=== PATIENT | female | born 1985 | race American Indian/Alaskan Native ===

== ENCOUNTER 2016-10-16 10:52 | Inpatient (IN) | payer BC ==
[2016-10-16 12:01] LABS: Hematocrit 38.3 % (30.3-42.9); Hemoglobin 12.3 gm/dl (10.1-14.3); Mean Corpuscular HGB Conc 32 % (30-34); Mean Corpuscular Hemoglobin 27 pg (28-32); Mean Corpuscular Volume 85 fl (79-97); Platelet Count 220 K/mm3 (140-440); Red Blood Count 4.52 M/mm3 (3.65-5.03); Red Cell Distribution Width 15.4 % (13.2-15.2); White Blood Count 6.3 K/mm3 (4.5-11.0)
[2016-10-16 12:09] LABS: Bilirubin,Urine NEG (Negative); Blood,Urine NEG (Negative); Ketones,Urine NEG (Negative); Leukocyte Esterase,Urine TR (Negative); Mucus,Urine FEW /HPF; Nitrite,Urine NEG (Negative); Protein,Urine <15 mg/dL mg/dL (Negative); Urobilinogen,Urine < 2.0 mg/dL (<2.0); WBC,Urine < 1.0 /HPF (0.0-6.0)
[2016-10-16 12:24] LABS: Alanine Aminotransferase 29 units/L (7-56); Lactate Dehydrogenase 220 units/L (91-180); Uric Acid 6.2 mg/dL (3.5-7.6)
[2016-10-16] MEDS ORDERED: BRETHINE SUB-Q PRN (13:10)
[2016-10-16] MEDS ORDERED: SUBLIMAZE IV PRN (13:10)
[2016-10-16] MEDS ORDERED: ePHEDrine SULFATE IV PRN (13:10)
[2016-10-16] MEDS ORDERED: XYLOCAINE 2% INFILTRATI ONE ×2 (13:10→19:07)
[2016-10-16] MEDS ORDERED: ZOFRAN IV PRN (13:10)
[2016-10-16] MEDS ORDERED: MINERAL OIL PO PRN (13:10)
--- NOTE | 2016-10-16 13:18 | History and Physical Report ---
History of Present Illness Date of examination: 10/16/16 Chief complaint: pt sent from office for evaluation of elevated b/p reading, while in triage noted to be ctxing frequently as SVE 4cms. Plan to admit for labor. History of present illness: EDC Confirmation: 10/28/2016 Past History : 2 Term Births: 1 Premature Births: 0 Living Children: 1 Para: 1 Mult. Births: 0 Prev : 0 Prev. attempt? 0 Aborta: 0 Elect. Ab: 0 Spont. Ab: 0 Ectopics: 0 # 1 Delivery date: 2006 Weeks Gestation: term labor: no Delivery type: Anesthesia type: none Delivery location: [place] Infant Sex: Female weight: 6#2 Comments: no complications Past Medical History: Negative Past Medical History Past Surgical History: negative Past Medical History Anesthesia Complications: negative Anemia: negative Autoimmune Disorder: negative Bleeding Disorder: negative Blood Transfusions: negative Breast Disease: negative Diabetes: negative Heart Disease: negative Hypertension: negative Hepatitis/Liver Disease: negative Kidney Disease/UTI: negative Neurologic/Epilepsy/Migraines: negative Phlebitis/Varicosities: negative Psychiatric: negative Pulmonary Disease/Asthma: negative Thyroid Disease: negative Hospitalizations: negative Surgery (Non-carrot buncher): negative Abnormal PAP: negative PETERSON Exposure: negative Infertility: negative Uterine Anomaly: negative Uterine Surgery (not C/S): negative Other Gynecologic Problems: negative Social Hx: Patient is single Smoking History: Patient has never smoked. Infection History Hx of STD: none HIV Risk Eval: no Hepatitis B Risk Eval: low risk Personal hx. of genital herpes: no Partner hx. of genital herpes: no Rash, Viral, or Febrile illness since last LMP? no Varicella/Chicken Pox Status: Previous Disease Genetic History Congenital Heart Defect: Mom: no Dad: no Jerrod Disease: Mom: no Dad: no Thalassemia Mom: no Dad: no Neural Tube Defect Mom: no Dad: no Down's Syndrome Mom: no Dad: no Juan Carlos-Sachs Mom: no Dad: no Sickle Cell Disease/Trait Mom: no Dad: no Hemophilia Mom: no Dad: no Muscular Dystrophy Mom: no Dad: no Cystic Fibrosis Mom: no Dad: no Izard Chorea Mom: no Dad: no Mental Retardation Mom: no Dad: no Fragile X Mom: no Dad: no Other Genetic/Chromosomal Disorder Mom: no Dad: no Child w/other defect Mom: no Dad: no Enviromental Exposures Xray Exposure: no Medication, drug, or alcohol use since LMP: no Chemical/Other Exposure: no Exposure to Cat Liter: no Hx of Parvovirus (Fifth Disease): no Occupational Exposure to Children: none Active Medications (reviewed today): None Current Allergies (reviewed today): SULFA (Critical) Past History - Obstetrical History Expected Date of Delivery: 10/28/16 Actual Gestation: 38 Week(s) 2 Day(s) : 2 Para: 1 (6#2oz) Hx # Term Pregnancies: 1 Number of Pregnancies: 0 Spontaneous Abortions: 0 Induced : 0 Number of Living Children: 1 Medications and Allergies Allergies Allergy/AdvReac Type Severity Reaction Status Date / Time Sulfa (Sulfonamide Allergy Intermediate Hives Verified 10/16/16 11:25 Antibiotics) Home Medications Medication Instructions Recorded Confirmed Last Taken Type Pnv with Ca,No.72/Iron/FA [Pnv 1 cap PO DAILY 10/16/16 10/16/16 1 Day Ago History Plus Multivit Tab] Review of Systems All systems: negative - Vital Signs Vital signs: Vital Signs Pulse Pulse Ox 72 99 10/16/16 11:28 10/16/16 11:28 Temp Pulse Resp BP Pulse Ox 75 126/77 98 10/16/16 13:09 10/16/16 12:59 10/16/16 13:09 - Physical Exam Breasts: Positive: normal Cardiovascular: Regular rate Lungs: Positive: Clear to auscultation, Normal air movement Abdomen: Positive: normal appearance, soft, normal bowel sounds Genitourinary (Female): Positive: normal external genitalia, normal perenium Vulva: both: normal Vagina: Positive: normal moisture Uterus: Positive: normal size, normal contour Anus/Rectum: Positive: normal perianal skin Extremities: Positive: normal Deep Tendon Reflex Grade: Normal +2 - Obstetrical FHR: category 2 FHR comments: variables Uterine Contraction Monitor Mode: External Cervical Dilatation: 4 Cervical Effacement Percentage: 70 station: -1 Uterine Contraction Pattern: Regular Uterine Tone Measurement Phase: Contraction Uterine Contraction Intensity: Moderate Results Result Diagrams: 10/16/16 11:45 10/16/16 11:45 Laboratory Data-Patient Name: ANSHU ROQUE Test Date Result Blood Type 04/08/2016 A Rh 04/08/2016 Positive Antibody Screen negative Rubella 04/08/2016 immune Serology (RPR) 09/25/2016 nonreactive HBsAg 04/08/2016 Negative Hemoglobin 07/08/2016 11.4 Hematocrit 07/08/2016 35.3 Platelets 04/08/2016 247 [id number] Chlamydia DNA 09/25/2016 Negative GC DNA/Culture 09/25/2016 Urine Culture 04/08/2016 Final report Group B Strep cult negative PAP 03/11/2016 Normal, Satisfactory HIV 09/25/2016 negative AFP/Quad Screen 04/29/2016 Glucola Test 3hr GTT (Fasting) 1 hr 2 hr 3 hr [facility]-Patient Name:ANSHU ROQUE Test Date Result Varicella Ab Sickle Cell 04/08/2016 Negative PPD Fibronectin Cystic Fibrosis Parvovirus TSH Free T4 Hepatitis C ALT AST Uric Acid Creatinine 24 hr Urine Protein YOSELIN Abnormal lab results 10/16/16 10/16/16 Range/Units 11:45 11:45 MCH 27 L (28-32) pg RDW 15.4 H (13.2-15.2) % Creatinine 0.6 L (0.7-1.2) mg/dL AST 42 H (5-40) units/L Lactate Dehydrogenase 220 H (91-180) units/L All other labs normal. Assessment and Plan 31 y/o @ 38 weeks 2 days, laboring. pre-e ruled out but will continue to monitor for gestational HTN. admission orders in EMR. Dr. Banuelos consulted for plan of care. - Patient Problems (1) Elevated blood pressure affecting in third trimester, antepartum Current Visit: Yes Status: Acute Plan to address problem: pre-e labs collected, AST 42 and trace protein in UA pt asymptomatic for pre-e b/p trended down to normal while resting in triage Will continue to monitor b/p (2) Active labor at term Onset Date: 10/16/16 Current Visit: Yes Status: Acute Plan to address problem: admission order in EMR pitocin augmentation if needed Anticipate (3) 38 weeks gestation of Current Visit: Yes Status: Acute
[2016-10-16] MEDS ORDERED: LACTATED RINGERS 1,000 ML IV SCH (14:00)
[2016-10-16] MEDS ORDERED: PITOCin/NS 30 UNIT/500ML 30 UNITS/500 ML BAG IV SCH (14:00)
[2016-10-16] MEDS ORDERED: PITOCin/NS 20 UNIT/1000ML DRIP 20 UNITS/1,000 ML BAG IV SCH (14:00)
[2016-10-16 14:09] LABS: Hematocrit 38.6 % (30.3-42.9); Hemoglobin 12.5 gm/dl (10.1-14.3); Mean Corpuscular HGB Conc 33 % (30-34); Mean Corpuscular Hemoglobin 27 pg (28-32); Mean Corpuscular Volume 84 fl (79-97); Platelet Count 223 K/mm3 (140-440); Red Blood Count 4.59 M/mm3 (3.65-5.03); Red Cell Distribution Width 15.5 % (13.2-15.2); White Blood Count 6.6 K/mm3 (4.5-11.0)
--- NOTE | 2016-10-16 16:14 | Progress Note ---
Assessment and Plan Patient tolerating ctx well, SVE 4.5/80/-1, AROM clear fluid. ISE and IUPC placed without difficulty, both working well. tracing reviewed with ave variability and nonperiodic late decels. Will continue to monitor closely. Patient denies need for epidural, plans on unmedicated like her last. Dr. Banuelos updated on patient's status. - Patient Problems (1) Elevated blood pressure affecting in third trimester, antepartum Onset Date: 10/16/16 Current Visit: Yes Status: Acute Plan to address problem: Patient remains asymptomatic for pre-e denies WILSON, epigastric pain or visual changes Will continue to monitor (2) Active labor at term Onset Date: 10/16/16 Current Visit: Yes Status: Acute (3) 38 weeks gestation of Current Visit: Yes Status: Acute Subjective - Subjective Date of service: 10/16/16 Principal diagnosis: IUP @ 38wk, gestational HTN, labor Interval history: EDC Confirmation: 10/28/2016 Past History : 2 Term Births: 1 Premature Births: 0 Living Children: 1 Para: 1 Mult. Births: 0 Prev : 0 Prev. attempt? 0 Aborta: 0 Elect. Ab: 0 Spont. Ab: 0 Ectopics: 0 # 1 Delivery date: 2007 Weeks Gestation: term labor: no Delivery type: Anesthesia type: none Delivery location: [place] Sex: Female weight: 6#2 Comments: no complications Past Medical History: Negative Past Medical History Past Surgical History: negative Past Medical History Anesthesia Complications: negative Anemia: negative Autoimmune Disorder: negative Bleeding Disorder: negative Blood Transfusions: negative Breast Disease: negative Diabetes: negative Heart Disease: negative Hypertension: negative Hepatitis/Liver Disease: negative Kidney Disease/UTI: negative Neurologic/Epilepsy/Migraines: negative Phlebitis/Varicosities: negative Psychiatric: negative Pulmonary Disease/Asthma: negative Thyroid Disease: negative Hospitalizations: negative Surgery (Non-stewarding supervisor): negative Abnormal PAP: negative PETERSON Exposure: negative Infertility: negative Uterine Anomaly: negative Uterine Surgery (not C/S): negative Other Gynecologic Problems: negative Social Hx: Patient is single Smoking History: Patient has never smoked. Infection History Hx of STD: none HIV Risk Eval: no Hepatitis B Risk Eval: low risk Personal hx. of genital herpes: no Partner hx. of genital herpes: no Rash, Viral, or Febrile illness since last LMP? no Varicella/Chicken Pox Status: Previous Disease Genetic History Congenital Heart Defect: Mom: no Dad: no Jerrod Disease: Mom: no Dad: no Thalassemia Mom: no Dad: no Neural Tube Defect Mom: no Dad: no Down's Syndrome Mom: no Dad: no Juan Carlos-Sachs Mom: no Dad: no Sickle Cell Disease/Trait Mom: no Dad: no Hemophilia Mom: no Dad: no Muscular Dystrophy Mom: no Dad: no Cystic Fibrosis Mom: no Dad: no Joyce Chorea Mom: no Dad: no Mental Retardation Mom: no Dad: no Fragile X Mom: no Dad: no Other Genetic/Chromosomal Disorder Mom: no Dad: no Child w/other defect Mom: no Dad: no Enviromental Exposures Xray Exposure: no Medication, drug, or alcohol use since LMP: no Chemical/Other Exposure: no Exposure to Cat Liter: no Hx of Parvovirus (Fifth Disease): no Occupational Exposure to Children: none Active Medications (reviewed today): None Current Allergies (reviewed today): SULFA (Critical) Patient reports: movement normal, contractions, no new complaints Objective - Vital Signs Vital Signs: Vital Signs - 12hr 10/16/16 10/16/16 10/16/16 11:28 11:29 11:44 Temperature Pulse Rate 72 72 75 Respiratory Rate Blood Pressure 147/85 148/94 O2 Sat by Pulse 99 Oximetry 10/16/16 10/16/16 10/16/16 11:48 11:53 11:58 Temperature Pulse Rate 83 80 77 Respiratory Rate Blood Pressure O2 Sat by Pulse 98 98 98 Oximetry 10/16/16 10/16/16 10/16/16 11:59 12:03 12:06 Temperature Pulse Rate 76 83 89 Respiratory Rate Blood Pressure 142/75 O2 Sat by Pulse 99 97 Oximetry 10/16/16 10/16/16 10/16/16 12:07 12:13 12:14 Temperature Pulse Rate 80 80 77 Respiratory Rate Blood Pressure 116/63 O2 Sat by Pulse 99 98 Oximetry 10/16/16 10/16/16 10/16/16 12:18 12:23 12:28 Temperature Pulse Rate 83 83 82 Respiratory Rate Blood Pressure O2 Sat by Pulse 97 99 98 Oximetry 10/16/16 10/16/16 10/16/16 12:29 12:33 12:38 Temperature Pulse Rate 83 84 79 Respiratory Rate Blood Pressure 136/89 O2 Sat by Pulse 97 98 Oximetry 10/16/16 10/16/16 10/16/16 12:43 12:44 12:48 Temperature Pulse Rate 86 80 75 Respiratory Rate Blood Pressure 134/46 O2 Sat by Pulse 99 99 Oximetry 10/16/16 10/16/16 10/16/16 12:53 12:58 12:59 Temperature Pulse Rate 81 89 83 Respiratory Rate Blood Pressure 126/77 O2 Sat by Pulse 99 99 Oximetry 10/16/16 10/16/16 10/16/16 13:03 13:09 13:14 Temperature Pulse Rate 79 75 84 Respiratory Rate Blood Pressure 133/83 O2 Sat by Pulse 99 98 98 Oximetry 10/16/16 10/16/16 10/16/16 13:19 13:56 14:10 Temperature 98.5 F Pulse Rate 86 78 81 Respiratory 16 Rate Blood Pressure 145/86 142/98 O2 Sat by Pulse 97 Oximetry 10/16/16 10/16/16 10/16/16 14:12 14:27 14:40 Temperature Pulse Rate 80 81 84 Respiratory Rate Blood Pressure 143/97 147/81 139/86 O2 Sat by Pulse Oximetry 10/16/16 10/16/16 10/16/16 14:56 15:25 15:41 Temperature Pulse Rate 86 83 86 Respiratory Rate Blood Pressure 136/83 129/69 129/69 O2 Sat by Pulse Oximetry 10/16/16 10/16/16 10/16/16 15:56 15:58 16:04 Temperature Pulse Rate 92 H 95 H 84 Respiratory Rate Blood Pressure 180/105 162/87 144/80 O2 Sat by Pulse Oximetry - Exam Breasts: normal Cardiovascular: Regular rate Lungs: Clear to auscultation, Normal air movement Abdomen: Present: normal appearance, soft Vulva: both: normal Uterus: Present: normal FHR: category 2 FHR comments: intermittant variables, possible late decels. Cervical Dilatation: 4.5 (AROM - clear) Cervical Effacement Percentage: 80 station: -1 Uterine Contraction Frequency (min): 2-4 Uterine Contraction Duration: 60-70 Uterine Contraction Pattern: Regular Uterine Tone Measurement Phase: Contraction Uterine Contraction Intensity: Moderate Extremities: normal Deep Tendon Reflex Grade: Normal +2 - Labs Labs: Abnormal Labs 10/16/16 10/16/16 10/16/16 11:45 11:45 13:46 MCH 27 L 27 L RDW 15.4 H 15.5 H Creatinine 0.6 L AST 42 H Lactate Dehydrogenase 220 H Laboratory Results - last 24 hr 10/16/16 10/16/16 10/16/16 11:45 11:45 11:45 WBC 6.3 RBC 4.52 Hgb 12.3 Hct 38.3 MCV 85 MCH 27 L MCHC 32 RDW 15.4 H Plt Count 220 Creatinine 0.6 L Estimated GFR > 60 Uric Acid 6.2 AST 42 H ALT 29 Lactate Dehydrogenase 220 H Urine Color Yellow Urine Turbidity Clear Urine pH 7.0 Ur Specific [place] 1.011 Urine Protein <15 mg/dl Urine Glucose (UA) Neg Urine Ketones Neg Urine Blood Neg Urine Nitrite Neg Urine Bilirubin Neg Urine Urobilinogen < 2.0 Ur Leukocyte Esterase Tr Urine WBC (Auto) < 1.0 Urine RBC (Auto) 3.0 U Epithel Cells (Auto) 2.0 Urine Mucus Few RPR Blood Type Antibody Screen 10/16/16 10/16/16 10/16/16 11:45 13:46 13:46 WBC 6.6 RBC 4.59 Hgb 12.5 Hct 38.6 MCV 84 MCH 27 L MCHC 33 RDW 15.5 H Plt Count 223 Creatinine Estimated GFR Uric Acid AST ALT Lactate Dehydrogenase Urine Color Urine Turbidity Urine pH Ur Specific [place] Urine Protein Urine Glucose (UA) Urine Ketones Urine Blood Urine Nitrite Urine Bilirubin Urine Urobilinogen Ur Leukocyte Esterase Urine WBC (Auto) Urine RBC (Auto) U Epithel Cells (Auto) Urine Mucus RPR Nonreactive Blood Type A POSITIVE Antibody Screen Negative
--- NOTE | 2016-10-16 16:57 | Progress Note ---
Assessment and Plan - Patient Problems (1) 38 weeks gestation of Current Visit: Yes Status: Acute (2) Active labor at term Onset Date: 10/16/16 Current Visit: Yes Status: Acute (3) Elevated blood pressure affecting in third trimester, antepartum Onset Date: 10/16/16 Current Visit: Yes Status: Acute Plan to address problem: no headaches or blurry vision at this time con't to monitor no magnesium at this time as bp in mild range and no dx of pre E. Subjective - Subjective Date of service: 10/16/16 Principal diagnosis: IUP @ 38wk, gestational HTN, labor Interval history: Pt doing well and still does not desire an epidural at this time. Tracing reviewed and noted to be cat II due to occasional late decels. Patient reports: loss of fluid, movement normal, contractions, no new complaints Objective - Vital Signs Vital Signs: Vital Signs - 12hr 10/16/16 10/16/16 10/16/16 11:28 11:29 11:44 Temperature Pulse Rate 72 72 75 Respiratory Rate Blood Pressure 147/85 148/94 O2 Sat by Pulse 99 Oximetry 10/16/16 10/16/16 10/16/16 11:48 11:53 11:58 Temperature Pulse Rate 83 80 77 Respiratory Rate Blood Pressure O2 Sat by Pulse 98 98 98 Oximetry 10/16/16 10/16/16 10/16/16 11:59 12:03 12:06 Temperature Pulse Rate 76 83 89 Respiratory Rate Blood Pressure 142/75 O2 Sat by Pulse 99 97 Oximetry 10/16/16 10/16/16 10/16/16 12:07 12:13 12:14 Temperature Pulse Rate 80 80 77 Respiratory Rate Blood Pressure 116/63 O2 Sat by Pulse 99 98 Oximetry 10/16/16 10/16/16 10/16/16 12:18 12:23 12:28 Temperature Pulse Rate 83 83 82 Respiratory Rate Blood Pressure O2 Sat by Pulse 97 99 98 Oximetry 10/16/16 10/16/16 10/16/16 12:29 12:33 12:38 Temperature Pulse Rate 83 84 79 Respiratory Rate Blood Pressure 136/89 O2 Sat by Pulse 97 98 Oximetry 10/16/16 10/16/16 10/16/16 12:43 12:44 12:48 Temperature Pulse Rate 86 80 75 Respiratory Rate Blood Pressure 134/46 O2 Sat by Pulse 99 99 Oximetry 10/16/16 10/16/16 10/16/16 12:53 12:58 12:59 Temperature Pulse Rate 81 89 83 Respiratory Rate Blood Pressure 126/77 O2 Sat by Pulse 99 99 Oximetry 10/16/16 10/16/16 10/16/16 13:03 13:09 13:14 Temperature Pulse Rate 79 75 84 Respiratory Rate Blood Pressure 133/83 O2 Sat by Pulse 99 98 98 Oximetry 10/16/16 10/16/16 10/16/16 13:19 13:56 14:10 Temperature 98.5 F Pulse Rate 86 78 81 Respiratory 16 Rate Blood Pressure 145/86 142/98 O2 Sat by Pulse 97 Oximetry 10/16/16 10/16/16 10/16/16 14:12 14:27 14:40 Temperature Pulse Rate 80 81 84 Respiratory Rate Blood Pressure 143/97 147/81 139/86 O2 Sat by Pulse Oximetry 10/16/16 10/16/16 10/16/16 14:56 15:25 15:41 Temperature Pulse Rate 86 83 86 Respiratory Rate Blood Pressure 136/83 129/69 129/69 O2 Sat by Pulse Oximetry 10/16/16 10/16/16 10/16/16 15:56 15:58 16:04 Temperature Pulse Rate 92 H 95 H 84 Respiratory Rate Blood Pressure 180/105 162/87 144/80 O2 Sat by Pulse Oximetry 10/16/16 10/16/16 10/16/16 16:10 16:25 16:40 Temperature Pulse Rate 87 81 82 Respiratory Rate Blood Pressure 148/84 136/81 148/80 O2 Sat by Pulse Oximetry - Exam FHR: category 2 (due to occasional late decels) Uterine Contraction Monitor Mode: Internal Cervical Dilatation: 5.5 Cervical Effacement Percentage: 90 station: -1 Uterine Contraction Pattern: Regular Uterine Contraction Intensity: Moderate Extremities: normal - Labs Labs: Abnormal Labs 10/16/16 10/16/16 10/16/16 11:45 11:45 13:46 MCH 27 L 27 L RDW 15.4 H 15.5 H Creatinine 0.6 L AST 42 H Lactate Dehydrogenase 220 H Laboratory Results - last 24 hr 10/16/16 10/16/16 10/16/16 11:45 11:45 11:45 WBC 6.3 RBC 4.52 Hgb 12.3 Hct 38.3 MCV 85 MCH 27 L MCHC 32 RDW 15.4 H Plt Count 220 Creatinine 0.6 L Estimated GFR > 60 Uric Acid 6.2 AST 42 H ALT 29 Lactate Dehydrogenase 220 H Urine Color Yellow Urine Turbidity Clear Urine pH 7.0 Ur Specific [place] 1.011 Urine Protein <15 mg/dl Urine Glucose (UA) Neg Urine Ketones Neg Urine Blood Neg Urine Nitrite Neg Urine Bilirubin Neg Urine Urobilinogen < 2.0 Ur Leukocyte Esterase Tr Urine WBC (Auto) < 1.0 Urine RBC (Auto) 3.0 U Epithel Cells (Auto) 2.0 Urine Mucus Few RPR Blood Type Antibody Screen 10/16/16 10/16/16 10/16/16 11:45 13:46 13:46 WBC 6.6 RBC 4.59 Hgb 12.5 Hct 38.6 MCV 84 MCH 27 L MCHC 33 RDW 15.5 H Plt Count 223 Creatinine Estimated GFR Uric Acid AST ALT Lactate Dehydrogenase Urine Color Urine Turbidity Urine pH Ur Specific [place] Urine Protein Urine Glucose (UA) Urine Ketones Urine Blood Urine Nitrite Urine Bilirubin Urine Urobilinogen Ur Leukocyte Esterase Urine WBC (Auto) Urine RBC (Auto) U Epithel Cells (Auto) Urine Mucus RPR Nonreactive Blood Type A POSITIVE Antibody Screen Negative
--- NOTE | 2016-10-16 17:58 | Event Note ---
Date: 10/16/16 Pt c/o having increased pressure. cx unchanged 5.5/90/-1. Cat I tracing at this time as late decel improving with IVFs and position change. Cont pitocin at this time. Anticipate . Pt still declines epidural at this time.
[2016-10-16] MEDS ORDERED: TYLENOL PO PRN (19:38)
[2016-10-16] MEDS ORDERED: PHENERGAN PR PRN (19:38)
[2016-10-16] MEDS ORDERED: DERMOPLAST TP PRN (19:38)
[2016-10-16] MEDS ORDERED: LANSINOH TP PRN (19:38)
[2016-10-16] MEDS ORDERED: TUCKS PAD TP PRN (19:38)
[2016-10-16] MEDS ORDERED: PHENERGAN PO PRN (19:38)
[2016-10-16] MEDS ORDERED: NORCO 5/325 PO PRN (19:38)
[2016-10-16] MEDS ORDERED: BENADRYL PO PRN (19:38)
[2016-10-16] MEDS ORDERED: MILK OF MAGNESIA PO PRN (19:38)
[2016-10-16] MEDS ORDERED: DULCOLAX PR PRN (19:38)
--- NOTE | 2016-10-16 19:48 | Procedure Note ---
OB Delivery Note - Delivery Date of Delivery: 10/16/16 Surgeon: HEMA GOODMAN Estimated blood loss: 300cc - Vaginal Delivery presentation: vertex Delivery position: OA Intrapartum events: none Delivery induction: none Delivery augmentation: rupture of membranes, pitocin Delivery monitor: external FHT, external uterine, internal FHT, internal uterine Route of delivery: Delivery placenta: spontaneous Delivery cord: 3 umbilical vessels Episiotomy: none Delivery laceration: 1st degree (perineal), 2nd degree (bilateral periruethral) Delivery repair: vicryl Anesthesia: local Delivery comments: Delivery as above. There were not complications noted. Ant shoulder and rest of delivered without difficulty. placed on maternal abdomen. Cord was clamped x2 and cut times one. Cord blood was not collected. Placenta delivered spontaneously intact. Laceration noted as above and repaired under local anesthesia with 3-0 vicryl. Pt tolerated procedure well. EBL 300ml. Mother and infant stable in LDR. - A at 1 minute: 8 at 5 minutes: 9 Infant Gender: Male (7lbs 7oz)
[2016-10-16] MEDS ORDERED: SODIUM CHLORIDE FLUSH SYRINGE 10 ML IV NR (20:00)
[2016-10-16] MEDS: MOTRIN PO SCH (22:27)
[2016-10-17] MEDS: MOTRIN PO SCH ×3 (05:26→14:01)
[2016-10-17 08:59] LABS: Hematocrit 35.4 % (30.3-42.9); Hemoglobin 11.4 gm/dl (10.1-14.3)
--- NOTE | 2016-10-17 12:39 | Progress Note ---
Assessment and Plan - Patient Problems (1) Vaginal delivery Onset Date: ~10/16/16 Current Visit: Yes Status: Acute (2) Elevated blood pressure affecting in third trimester, antepartum Onset Date: 10/16/16 Current Visit: Yes Status: Acute Plan to address problem: BP normal now (3) 38 weeks gestation of Current Visit: Yes Status: Acute (4) Active labor at term Onset Date: 10/16/16 Current Visit: Yes Status: Acute Subjective - Subjective Date of service: 10/17/16 Principal diagnosis: IUP @ 38wk, gestational HTN, labor Interval history: doing well post vag del of male infant Patient reports: appetite normal, voiding normally, pain well controlled, ambulating normally : doing well Objective - Vital Signs Latest vital signs: Vital Signs Temp Pulse Pulse Resp BP BP BP 10/17/16 09:10 98.4 F 86 18 140/75 10/17/16 05:10 98.9 F 88 20 111/71 10/17/16 01:15 98.9 F 76 20 152/78 10/16/16 21:50 98.6 F 80 20 146/77 10/16/16 20:41 77 126/82 10/16/16 20:26 81 108/87 10/16/16 20:10 76 134/85 10/16/16 19:55 75 138/82 10/16/16 19:40 77 133/77 10/16/16 19:31 98.9 F 20 10/16/16 19:24 86 142/81 10/16/16 18:55 78 137/88 10/16/16 18:41 122 H 129/82 10/16/16 18:31 76 151/88 10/16/16 18:27 72 177/87 10/16/16 18:10 75 141/77 10/16/16 17:56 72 147/73 10/16/16 17:40 75 129/72 10/16/16 17:26 77 129/73 10/16/16 17:10 78 118/61 10/16/16 16:56 77 132/68 10/16/16 16:40 82 148/80 10/16/16 16:25 81 136/81 10/16/16 16:10 87 148/84 10/16/16 16:04 84 144/80 10/16/16 15:58 95 H 162/87 10/16/16 15:56 92 H 180/105 10/16/16 15:41 86 129/69 10/16/16 15:25 83 129/69 10/16/16 14:56 86 136/83 10/16/16 14:40 84 139/86 10/16/16 14:27 81 147/81 10/16/16 14:12 80 143/97 10/16/16 14:10 98.5 F 81 16 142/98 10/16/16 13:56 78 145/86 10/16/16 13:19 86 10/16/16 13:14 84 133/83 10/16/16 13:09 75 10/16/16 13:03 79 10/16/16 12:59 83 126/77 10/16/16 12:58 89 10/16/16 12:53 81 10/16/16 12:48 75 10/16/16 12:44 80 134/46 10/16/16 12:43 86 10/16/16 12:38 79 Pulse Ox 10/17/16 09:10 10/17/16 05:10 10/17/16 01:15 10/16/16 21:50 10/16/16 20:41 10/16/16 20:26 10/16/16 20:10 10/16/16 19:55 10/16/16 19:40 10/16/16 19:31 10/16/16 19:24 10/16/16 18:55 10/16/16 18:41 10/16/16 18:31 10/16/16 18:27 10/16/16 18:10 10/16/16 17:56 10/16/16 17:40 10/16/16 17:26 10/16/16 17:10 10/16/16 16:56 10/16/16 16:40 10/16/16 16:25 10/16/16 16:10 10/16/16 16:04 10/16/16 15:58 10/16/16 15:56 10/16/16 15:41 10/16/16 15:25 10/16/16 14:56 10/16/16 14:40 10/16/16 14:27 10/16/16 14:12 10/16/16 14:10 10/16/16 13:56 10/16/16 13:19 97 10/16/16 13:14 98 10/16/16 13:09 98 10/16/16 13:03 99 10/16/16 12:59 10/16/16 12:58 99 10/16/16 12:53 99 10/16/16 12:48 99 10/16/16 12:44 10/16/16 12:43 99 10/16/16 12:38 98 Intake and Output 10/16/16 10/17/16 10/17/16 22:59 06:59 14:59 Intake Total 675 990 480 Output Total 100 600 800 Balance 575 390 -320 Intake: IV 675 750 PITOCin/NS 20 UNIT/1000ML 175 750 DRIP 20 units In 1,000 ml @ 125 mls/hr IV DIRECT [facility] Rx#:[id number] PITOCin/NS 30 UNIT/500ML 500 30 units In 500 ml @ 2 mls/hr IV TITR [facility] Rx#: [id number] Oral 480 Intake, Free Water 240 Output: Urine 100 600 800 Void 100 600 800 Other: Total, Intake Amount 480 Total, Output Amount 100 600 800 Estimated Blood Loss 300 - Exam Breasts: Present: deferred Abdomen: Present: normal appearance, soft Uterus: Present: normal, firm Extremities: Present: normal - Labs Labs: Abnormal lab results 10/16/16 Range/Units 13:46 MCH 27 L (28-32) pg RDW 15.5 H (13.2-15.2) %
[2016-10-17] MEDS ORDERED: MOTRIN PO PRN (18:19)
--- NOTE | 2016-10-17 20:53 | Discharge Summary ---
Providers - Providers Date of Admission: 10/16/16 13:16 Date of discharge: 10/17/16 Attending physician: HEMA GOODMAN Primary care physician: HEMA GOODMAN Hospitalization Reason for admission: active labor, IUP at term Delivery: Episiotomy: none Laceration: none Other procedures: none complications: none Discharge diagnosis: IUP at term delivered [place] baby: male Hospital course: did well, had mild gest HTN, no meds, no Mag, pp BP wnl Condition at discharge: Good Disposition: DISCHARGED TO HOME OR SELFCARE - Discharge Diagnoses (1) Vaginal delivery Status: Acute (2) Elevated blood pressure affecting in third trimester, antepartum Status: Resolved (3) 38 weeks gestation of Status: Acute (4) Active labor at term Status: Acute Plan - Discharge Medications Prescriptions: Ibuprofen [Motrin 800 MG tab] 800 mg PO Q8HR PRN #30 tablet PRN Reason: Pain Lidocain2.5%/Prilocai2.5% [Emla] 5 gm TP ONCE #1 tube - Provider Discharge Summary Activity: routine, no sex for 6 weeks, no heavy lifting 4 weeks, no strenuous exercise Diet: routine Instructions: routine Additional instructions: [] Smoking cessation referral if applicable(refer to patient education folder for contact #) [] Refer to [facility] Booklet Call your doctor immediately for: * Fever > 100.5 * Heavy vaginal bleeding ( >1 pad per hour) * Severe persistent headache * Shortness of breath * Reddened, hot, painful area to leg or breast * Drainage or odor from incision. * Keep incision clean and dry at all times and follow doctor's instructions regarding bathing/showering - Follow up plan Follow up: HEMA GOODMAN MD [Primary Care Provider] - 7 Days Forms: [facility] Discharge Summary
[2016-10-17 22:13] VITALS: BP 145/89
== END 2016-10-17 22:14 | disposition home or self-care (01) | DRG 774 ==
LOC: TRG 10:52 → LD 13:16 → OB 21:30
PROVIDERS: ADMIT Obstetrics & Gynecology; ATTEND Obstetrics & Gynecology
PROC: 10E0XZZ Delivery of Products of Conception, External Approach (ICD-10-PCS; principal; 2016-10-16)
PROC: 10H07YZ Insertion of Other Device into Products of Conception, Via Natural or Artificial Opening (ICD-10-PCS; 2016-10-16)
PROC: 0KQM0ZZ Repair Perineum Muscle, Open Approach (ICD-10-PCS; 2016-10-16)
PROC: 10907ZC Drainage of Amniotic Fluid, Therapeutic from Products of Conception, Via Natural or Artificial Opening (ICD-10-PCS; 2016-10-16)
DX: O10.913 Unspecified pre-existing hypertension complicating pregnancy, third trimester (principal); Z37.0 Single live birth; Z3A.38 38 weeks gestation of pregnancy; Z88.2 Allergy status to sulfonamides; O71.82 Other specified trauma to perineum and vulva; O70.0 First degree perineal laceration during delivery; O26.893 Other specified pregnancy related conditions, third trimester; O76 Abnormality in fetal heart rate and rhythm complicating labor and delivery
CPT/HCPCS: 36415; 81001; 82565; 83615; 84450; 84460; 84550; 85014; 85018; 85027; 86592; 86850; 86900; 86901; 88307; J2590; J3010; J7120